=== PATIENT | male | born 1960 | race Hispanic/Latino ===

== ENCOUNTER 2020-07-02 21:21 | Emergency (ER) | payer OTHER ==
[~2020-07-02] VITALS: Ht 172.7 cm; Wt 102.1 kg
== END 2020-07-02 22:29 | disposition home or self-care (01) ==
LOC: ER 21:56
DX: U07.1 COVID-19 (principal); R50.9 Fever, unspecified; R05 Cough; R06.00 Dyspnea, unspecified; R43.8 Other disturbances of smell and taste; I10 Essential (primary) hypertension; E11.9 Type 2 diabetes mellitus without complications
CPT/HCPCS: 99282; U0002

== ENCOUNTER → 2021-03-19 | Outpatient (CLI) | payer OTHER | LOC: CT 08:32 | PROVIDERS: ATTEND Internal Medicine Cardiovascular Disease | DX: I25.10 Atherosclerotic heart disease of native coronary artery without angina pectoris (principal) | CPT/HCPCS: 75571 ==